=== PATIENT | female | born 2000 | race Caucasian/White ===

== ENCOUNTER 2019-02-02 06:14 | Emergency (ER) | payer OTHER ==
[~2019-02-02] VITALS: Ht 160 cm; Wt 56.7 kg
--- NOTE | 2019-02-02 06:17 | NUR ---
PT BIB [facility], PREBOOK. TAKEN TO BED 5
[2019-02-02 06:19] VITALS: BP 105/58
--- NOTE | 2019-02-02 06:25 | NUR ---
18 Y.O. FEMALE BIB [facility] FOR PRE BOOK. 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 PT C/O PAIN TO R SHOULDER AREA; ACHINESS. PT HAS ABRASIONS TO L KNEE AREA, AND LAC TO R WISE. PT DENIES NUMBNESS OR TINGLING @ THIS TIME. DENIES DIZZINESS/LIGHTHEADEDNESS. PT AAOX4 FOLLOWING COMMANDS. LUNGS CLEAR EVEN UNLABORED. DENIES CP/SOB. ABD SOFT NON DISTENDED. DENIES N/V/D. SKIN WARM DRY. [place] LOCKED IN LOWEST POSITION. WILL UPDATE ER MD. WILL CONTINUE TO OBSERVE. HX: DENIES MEDICAL HX RX: DENIES RX
--- NOTE | 2019-02-02 06:38 | NUR ---
Dr. Choe evaluating patient at bedside.
[2019-02-02] MEDS ORDERED: BACITRACIN OINT 500 UNITS/GM PKT TP ONE ×2 (06:50→06:58)
--- NOTE | 2019-02-02 06:50 | NUR ---
PATIENT BIB [facility], OFFICER JULIANA BADGE NO . PATIENT EXAMINED BY DR JOHNSON. PATIENT MEDICALLY CLEARED AND RELEASED IN CUSTODY IN STABLE CONDITION. ORIGINAL PRE-BOOK FORM GIVEN TO OFFICER JULIANA. DISCHARGE PAPERWORK GIVEN TO PT, VERBALIZED UNDERSTANDING.
[2019-02-02 06:58] VITALS: BP 118/61
== END 2019-02-02 06:50 ==
LOC: MED 06:14
DX: S80.811A Abrasion, right lower leg, initial encounter (principal); Z98.890 Other specified postprocedural states; V89.2XXA Person injured in unspecified motor-vehicle accident, traffic, initial encounter; Y93.89 Activity, other specified; Y92.89 Other specified places as the place of occurrence of the external cause; Y99.8 Other external cause status
CPT/HCPCS: 99283